=== PATIENT | female | born 1965 | race Caucasian/White ===

== ENCOUNTER 2018-07-24 03:33 | Emergency (ER) | payer MEDICAID, OTHER ==
[~2018-07-24] VITALS: Ht 154.9 cm; Wt 68.0 kg
[~2018-07-24 03:33] MED LIST: ALBU8.5H8 INH; Acetaminophen PO; GLIP5TAB13 PO; GUAI600T53 PO; LEVO500T2 PO; Metformin Hcl PO
[2018-07-24] MEDS ORDERED: IBUPROFEN 600 MG TABLET ONE (04:14)
[2018-07-24] MEDS ORDERED: SULFAMETH/TRIMETH 800/160 MG TABLET ONE (04:14)
[2018-07-24] MEDS ORDERED: IBUPROFEN 600 MG TABLET PO ONE (04:15)
[2018-07-24] MEDS ORDERED: SULFAMETH/TRIMETH 800/160 MG TABLET PO ONE (04:15)
--- NOTE | 2018-07-24 04:27 | NUR ---
Patient discharged to home in stable conditon. Written and verbal after care instructions given. Patient verbalizes understanding of instructions.
[2018-07-24 04:28] VITALS: BP 128/81
== END 2018-07-24 04:28 | disposition home or self-care (01) ==
LOC: ER 03:36
DX: L73.9 Follicular disorder, unspecified (principal); I25.2 Old myocardial infarction; E10.8 Type 1 diabetes mellitus with unspecified complications; F17.200 Nicotine dependence, unspecified, uncomplicated; Z59.0 Homelessness
CPT/HCPCS: A4663

== ENCOUNTER 2018-11-16 13:42 | Inpatient (IN) | payer OTHER ==
[~2018-11-16] VITALS: Ht 160 cm; Wt 59.4 kg
[2018-11-16] MEDS ORDERED: IV NORMAL SALINE 1000 ML BAG IV ONE (14:00)
[2018-11-16] MEDS ORDERED: CEFTRIAXONE 1 G in IV DEXTROSE 5% 50 ML IV ONE (14:00)
[2018-11-16] MEDS ORDERED: ALBUTEROL SULFATE 2.5 MG/3 ML NEBU ONE (14:10)
[2018-11-16] MEDS ORDERED: ALBUTEROL SULFATE 2.5 MG/ 0.5 ML NEBU ONE (14:10)
[2018-11-16] MEDS ORDERED: CEFTRIAXONE 1 G VIAL ONE (14:12)
[2018-11-16] MEDS ORDERED: ALBUTEROL SULFATE 2.5 MG/3 ML NEBU NEB ONE (14:15)
[2018-11-16 14:24] LABS: BASOPHILS # (AUTO) 0.2 K/uL (0.0-8.0); BASOPHILS % (AUTO) 1.4 % (0.0-2.0); EOSINOPHILS # (AUTO) 0.2 K/uL (0.0-0.7); EOSINOPHILS % (AUTO) 1.2 % (0.0-7.0); HEMATOCRIT 45.4 % (31.2-41.9); HEMOGLOBIN 15.6 g/dL (10.9-14.3); LYMPHOCYTES # (AUTO) 3.8 K/uL (20.0-40.0); LYMPHOCYTES % (AUTO) 28.4 % (20.5-51.5); MEAN CORPUSCULAR HEMOGLOBIN 29.5 uug (24.7-32.8); MEAN CORPUSCULAR HGB CONC 34 g/dL (32.3-35.6); MEAN CORPUSCULAR VOLUME 85.8 fL (75.5-95.3); MONOCYTES # (AUTO) 0.8 K/uL (2.0-10.0); MONOCYTES % (AUTO) 6.2 % (0.0-11.0); NEUTROPHILS # (AUTO) 8.5 K/uL (1.8-8.9); NEUTROPHILS % (AUTO) 62.8 % (38.5-71.5); PLATELET COUNT (AUTO) 394 K/uL (179-408); WHITE BLOOD COUNT (AUTO) 13.5 K/uL (3.8-11.8)
[2018-11-16 14:39] LABS: CREATININE 0.9 mg/dL (0.6-1.3); POTASSIUM 4.4 mmol/L (3.5-5.1)
[2018-11-16] MEDS ORDERED: INSULIN REGULAR, HUMAN 300 UNIT/3 ML VIAL SQ ONE (15:00)
[2018-11-16] MEDS ORDERED: INSULIN REGULAR, HUMAN 300 UNIT/3 ML VIAL ONE (15:06)
[2018-11-16 16:28] VITALS: BP 130/70
[2018-11-16] MEDS ORDERED: ACETAMINOPHEN 325 MG TABLET PO PRN (18:15)
[2018-11-16] MEDS ORDERED: Z GUARD REMEDY PASTE 57 GM TUBE TOP PRN (18:15)
[2018-11-16] MEDS ORDERED: ONDANSETRON 4 MG/2 ML VIAL IV PRN (18:15)
[2018-11-16] MEDS ORDERED: DEXTROSE 50% 50 ML DISP.SYRIN IV PRN (18:15)
[2018-11-16] MEDS ORDERED: ZOLPIDEM 5 MG TABLET PO PRN (18:15)
[2018-11-16] MEDS ORDERED: MAGNESIUM HYDROXIDE 30 ML LIQUID UDC PO PRN (18:15)
[2018-11-16 19:00] VITALS: BP 118/73
[2018-11-16] MEDS: IV NS 1000 ML 1,000 ML IV PRN (20:30)
[2018-11-16] MEDS: BLOOD SUGAR DIAGNOSTIC 1 EACH STRIP VI SCH (20:30)
[2018-11-16] MEDS: LOSARTAN POTASSIUM 50 MG TABLET PO SCH (20:30)
[2018-11-16] MEDS: ENOXAPARIN SODIUM 40 MG/0.4 ML DISP.SYRIN SQ SCH (20:32)
[2018-11-16] MEDS ORDERED: VANCOMYCIN IV 1 G in PREMIXED 0 EACH IV SCH (21:00)
[2018-11-16] MEDS: INSULIN GLARGINE,HUM 300 UNITS/3 ML CARTRIDGE SQ SCH (21:39)
[2018-11-16] MEDS: INSULIN REGULAR, HUMAN 300 UNIT/3 ML VIAL SQ PRN (21:41)
[2018-11-17] MEDS: BLOOD SUGAR DIAGNOSTIC 1 EACH STRIP VI SCH ×6 (01:42→20:48)
[2018-11-17] MEDS: INSULIN REGULAR, HUMAN 300 UNIT/3 ML VIAL SQ PRN ×4 (01:44→20:51)
[2018-11-17 04:00] VITALS: BP 118/71
[2018-11-17 06:36] LABS: BASOPHILS # (AUTO) 0.1 K/uL (0.0-8.0); BASOPHILS % (AUTO) 0.9 % (0.0-2.0); EOSINOPHILS # (AUTO) 0.3 K/uL (0.0-0.7); HEMATOCRIT 41.5 % (31.2-41.9); HEMOGLOBIN 14.1 g/dL (10.9-14.3); LYMPHOCYTES # (AUTO) 7.3 K/uL (20.0-40.0); LYMPHOCYTES % (AUTO) 46.4 % (20.5-51.5); MEAN CORPUSCULAR HEMOGLOBIN 28.3 uug (24.7-32.8); MEAN CORPUSCULAR HGB CONC 34 g/dL (32.3-35.6); MONOCYTES # (AUTO) 0.9 K/uL (2.0-10.0); MONOCYTES % (AUTO) 5.9 % (0.0-11.0); NEUTROPHILS # (AUTO) 7.1 K/uL (1.8-8.9); NEUTROPHILS % (AUTO) 44.8 % (38.5-71.5); PLATELET COUNT (AUTO) 377 K/uL (179-408); WHITE BLOOD COUNT (AUTO) 15.8 K/uL (3.8-11.8)
[2018-11-17 07:02] LABS: BILIRUBIN,TOTAL 0.2 mg/dL (0.2-1.0); CREATININE 0.7 mg/dL (0.6-1.3); MAGNESIUM 1.9 mg/dL (1.8-2.4); PHOSPHOROUS 3.1 mg/dL (2.5-4.9); POTASSIUM 3.6 mmol/L (3.5-5.1); TOTAL PROTEIN, SERUM 6.9 g/dL (6.4-8.2)
[2018-11-17 07:16] LABS: THYROID STIMULATING HORMONE 0.859 mIU/mL (0.358-3.740)
[2018-11-17] MEDS: LOSARTAN POTASSIUM 50 MG TABLET PO SCH (08:18)
[2018-11-17] MEDS: FENOFIBRATE NANOCRYSTALLIZED 48 MG TABLET PO SCH (11:24)
[2018-11-17] MEDS: HYDROCODONE/APAP 10-325 MG TABLET PO PRN ×2 (11:33→21:31)
[2018-11-17 11:45] VITALS: BP 127/78
[2018-11-17] MEDS: VANCOMYCIN IV 1 G in PREMIXED 0 EACH IV SCH (11:53)
[2018-11-17] MEDS: GABAPENTIN 100 MG CAPSULE PO SCH ×2 (13:50→16:10)
[2018-11-17 16:20] VITALS: BP 123/79
[2018-11-17 20:00] VITALS: BP 123/67
[2018-11-17] MEDS: INSULIN GLARGINE,HUM 300 UNITS/3 ML CARTRIDGE SQ SCH (20:50)
[2018-11-17] MEDS: ENOXAPARIN SODIUM 40 MG/0.4 ML DISP.SYRIN SQ SCH (20:56)
[2018-11-17] MEDS ORDERED: ATORVASTATIN 40 MG TABLET PO SCH (21:00)
[2018-11-17] MEDS: IV NS 1000 ML 1,000 ML IV PRN (21:34)
[2018-11-18] MEDS: VANCOMYCIN IV 1 G in PREMIXED 0 EACH IV SCH (00:10)
[2018-11-18] MEDS: BLOOD SUGAR DIAGNOSTIC 1 EACH STRIP VI SCH ×4 (00:14→11:27)
[2018-11-18] MEDS: INSULIN REGULAR, HUMAN 300 UNIT/3 ML VIAL SQ PRN ×2 (00:15→11:28)
[2018-11-18 04:35] VITALS: BP 116/72
[2018-11-18] MEDS: IV NS 1000 ML 1,000 ML IV PRN (06:02)
[2018-11-18 07:03] LABS: CREATININE 0.7 mg/dL (0.6-1.3); MAGNESIUM 1.9 mg/dL (1.8-2.4); PHOSPHOROUS 3.4 mg/dL (2.5-4.9); POTASSIUM 4.3 mmol/L (3.5-5.1)
[2018-11-18] MEDS: LOSARTAN POTASSIUM 50 MG TABLET PO SCH (08:05)
[2018-11-18] MEDS: FENOFIBRATE NANOCRYSTALLIZED 48 MG TABLET PO SCH (08:05)
[2018-11-18] MEDS: GABAPENTIN 100 MG CAPSULE PO SCH ×2 (08:05→13:42)
[2018-11-18] MEDS ORDERED: NICOTINE 21 MG/24HR PATCH TD SCH (11:00)
[2018-11-18 11:30] VITALS: BP 124/68
[2018-11-18] MEDS ORDERED: IV NS 1000 ML 1,000 ML IV PRN (12:00)
[2018-11-18 13:46] LABS: BASOPHILS # (AUTO) 0.1 K/uL (0.0-8.0); BASOPHILS % (AUTO) 1.3 % (0.0-2.0); EOSINOPHILS # (AUTO) 0.2 K/uL (0.0-0.7); EOSINOPHILS % (AUTO) 1.8 % (0.0-7.0); HEMATOCRIT 41.4 % (31.2-41.9); HEMOGLOBIN 13.6 g/dL (10.9-14.3); LYMPHOCYTES # (AUTO) 3.3 K/uL (20.0-40.0); LYMPHOCYTES % (AUTO) 29.3 % (20.5-51.5); MEAN CORPUSCULAR HEMOGLOBIN 28.4 uug (24.7-32.8); MEAN CORPUSCULAR HGB CONC 33 g/dL (32.3-35.6); MEAN CORPUSCULAR VOLUME 86.2 fL (75.5-95.3); MONOCYTES # (AUTO) 0.7 K/uL (2.0-10.0); MONOCYTES % (AUTO) 6.2 % (0.0-11.0); NEUTROPHILS # (AUTO) 6.9 K/uL (1.8-8.9); NEUTROPHILS % (AUTO) 61.4 % (38.5-71.5); PLATELET COUNT (AUTO) 324 K/uL (179-408); WHITE BLOOD COUNT (AUTO) 11.2 K/uL (3.8-11.8)
[2018-11-18] MEDS ORDERED: CLIN300C11 PO (14:44)
[2018-11-18] MEDS ORDERED: GABA-532 PO (14:44)
[2018-11-18] MEDS ORDERED: LOSA50TA3 PO (14:44)
[2018-11-18] MEDS ORDERED: FENO48TA PO (14:44)
[2018-11-18] MEDS ORDERED: Insulin Glargine,Hum SQ (14:44)
[2018-11-18] MEDS ORDERED: ATOR40TA PO (14:44)
[2018-11-18] MEDS ORDERED: Blood Sugar Diagnostic VI (14:44)
[2018-11-18] MEDS ORDERED: LACT1CAP59 PO (14:44)
[2018-11-18 15:37] VITALS: BP 114/66
== END 2018-11-18 15:45 | disposition home or self-care (01) | DRG 383 ==
LOC: ER 13:43 → MED 16:15
PROVIDERS: ADMIT Nurse Practitioner Acute Care; ATTEND Nurse Practitioner Acute Care
DX: L03.116 Cellulitis of left lower limb (principal); E10.42 Type 1 diabetes mellitus with diabetic polyneuropathy; E10.65 Type 1 diabetes mellitus with hyperglycemia; J44.9 Chronic obstructive pulmonary disease, unspecified; R32 Unspecified urinary incontinence; Z87.820 Personal history of traumatic brain injury; E86.0 Dehydration; E78.1 Pure hyperglyceridemia; I25.2 Old myocardial infarction; I25.10 Atherosclerotic heart disease of native coronary artery without angina pectoris; Z82.49 Family history of ischemic heart disease and other diseases of the circulatory system; Z98.61 Coronary angioplasty status; Z59.0 Homelessness; I10 Essential (primary) hypertension; E87.1 Hypo-osmolality and hyponatremia; E78.5 Hyperlipidemia, unspecified; Z87.01 Personal history of pneumonia (recurrent); F99 Mental disorder, not otherwise specified
CPT/HCPCS: 36415; 70030-TC; 71045; 83735; 84100; 84443; 85025; 85730; 93005; 93307; A4663; G0378; J0696; J1650; J1815; J3370; J7030